=== PATIENT | female | born 1995 | race Hispanic/Latino ===

== ENCOUNTER 2016-12-08 21:36 | Emergency (ER) | payer SELFPAY ==
[2016-12-08 22:13] LABS: Basophils % (Auto) 0.3 % (0.0-1.8); Hematocrit 35.8 % (30.3-42.9); Hemoglobin 11.7 gm/dl (10.1-14.3); Mean Corpuscular HGB Conc 33 % (30-34); Mean Corpuscular Volume 80 fl (79-97); Platelet Count 371 K/mm3 (140-440); White Blood Count 9.5 K/mm3 (4.5-11.0)
[2016-12-08 22:14] LABS: Mean Corpuscular Hemoglobin 26 pg (28-32)
[2016-12-08 22:27] LABS: Alanine Aminotransferase 43 units/L (7-56); Albumin 4.9 g/dL (3.9-5); Albumin/Globulin Ratio 1.6 %; Alkaline Phosphatase 55 units/L (35-129); Anion Gap 22 mmol/L; Blood Urea Nitrogen 4 mg/dL (7-17); Calcium 9.3 mg/dL (8.4-10.2); Carbon Dioxide 21 mmol/L (22-30); Chloride 95.7 mmol/L (98-107); Glucose 117 mg/dL (65-100); Lipase 26 units/L (13-60); Potassium 3.9 mmol/L (3.6-5.0); Sodium 135 mmol/L (137-145)
[2016-12-08 23:05] LABS: Bilirubin,Urine NEG (Negative); Blood,Urine NEG (Negative); Ketones,Urine NEG (Negative); Leukocyte Esterase,Urine NEG (Negative); Mucus,Urine FEW /HPF; Nitrite,Urine NEG (Negative); Protein,Urine <15 mg/dL mg/dL (Negative); RBC,Urine < 1.0 /HPF (0.0-6.0); Urobilinogen,Urine < 2.0 mg/dL (<2.0)
[2016-12-09 02:04] VITALS: BP 144/102
--- NOTE | 2016-12-09 02:36 | ED Elopement Review ---
ED Pt Elopement review - Results review Lab results: Laboratory Tests 12/08/16 12/08/16 12/08/16 21:56 21:56 21:56 WBC 9.5 RBC 4.50 Hgb 11.7 Hct 35.8 MCV 80 MCH 26 L MCHC 33 RDW 15.0 Plt Count 371 Lymph % (Auto) 17.8 [place] % (Auto) 3.6 Eos % (Auto) 0.0 Baso % (Auto) 0.3 Lymph # 1.7 [place] # 0.3 Eos # 0.0 Baso # 0.0 Seg Neutrophils % 78.3 H Seg Neutrophils # 7.5 Sodium 135 L Potassium 3.9 Chloride 95.7 L Carbon Dioxide 21 L Anion Gap 22 BUN 4 L Creatinine 0.5 L Estimated GFR > 60 BUN/Creatinine Ratio 8.00 Glucose 117 H Calcium 9.3 Total Bilirubin 0.30 AST 36 ALT 43 Alkaline Phosphatase 55 Total Protein 8.0 Albumin 4.9 Albumin/Globulin Ratio 1.6 Lipase 26 HCG, Qual Negative Urine Color Urine Turbidity Urine pH Ur Specific [place] Urine Protein Urine Glucose (UA) Urine Ketones Urine Blood Urine Nitrite Urine Bilirubin Urine Urobilinogen Ur Leukocyte Esterase Urine WBC (Auto) Urine RBC (Auto) U Epithel Cells (Auto) Urine Mucus 12/08/16 22:22 WBC RBC Hgb Hct MCV MCH MCHC RDW Plt Count Lymph % (Auto) [place] % (Auto) Eos % (Auto) Baso % (Auto) Lymph # [place] # Eos # Baso # Seg Neutrophils % Seg Neutrophils # Sodium Potassium Chloride Carbon Dioxide Anion Gap BUN Creatinine Estimated GFR BUN/Creatinine Ratio Glucose Calcium Total Bilirubin AST ALT Alkaline Phosphatase Total Protein Albumin Albumin/Globulin Ratio Lipase HCG, Qual Urine Color Yellow Urine Turbidity Clear Urine pH 5.0 Ur Specific [place] 1.033 H Urine Protein <15 mg/dl Urine Glucose (UA) Neg Urine Ketones Neg Urine Blood Neg Urine Nitrite Neg Urine Bilirubin Neg Urine Urobilinogen < 2.0 Ur Leukocyte Esterase Neg Urine WBC (Auto) 1.0 Urine RBC (Auto) < 1.0 U Epithel Cells (Auto) 2.0 Urine Mucus Few - Call Back decision Pt Call Back Decision: No action required
== END 2016-12-09 03:14 | disposition left against medical advice (07) ==
LOC: ED 21:36
DX: R10.9 Unspecified abdominal pain (principal); R11.10 Vomiting, unspecified; Z53.21 Procedure and treatment not carried out due to patient leaving prior to being seen by health care provider
CPT/HCPCS: 36415; 80053; 81001; 83690; 84703; 85025

== ENCOUNTER 2017-08-29 19:29 | Emergency (ER) | payer SELFPAY ==
[2017-08-29 20:02] VITALS: BP 115/92
[2017-08-29] MEDS ORDERED: BOOSTRIX IM ONE (23:45)
[2017-08-29] MEDS ORDERED: MOTRIN PO ONE (23:45)
--- NOTE | 2017-08-29 23:53 | Emergency Department Report ---
ED Animal Bite HPI - General Chief Complaint: Animal Bite Stated Complaint: DOG BITE Time Seen by Provider: 08/29/17 22:20 Source: patient Mode of arrival: Ambulatory Limitations: No Limitations - History of Present Illness Initial Comments: This is a 22-year-old female nontoxic, well nourished in appearance, no acute signs of distress presents to the ED with c/o of dog bite this evening. Patient stated she was in a neighbors house and a dog bite her right hand. Patient stated that the dog is up to date with all vaccines. Patient stated [employer] and animal control notified. Patient denies decreased ROM, pus, drainage, fever, chills, headache, nausea, vomiting, chest pain or shortness of breathe. Patient denies any allergies or PMH. MD Complaint: animal bite -: This evening Right: Hand Animal: dog Animal Control Notified: Yes Description: household pet Mechanism: bite Severity scale (0 -10): 8 Context: playing with animal Associated Symptoms: other (4 cm lacertation of the palm of right hand) Treatments Prior to Arrival: irrigation - Related Data Patient Tetanus UTD: No Previous Rx's Medication Instructions Recorded Last Taken Type Amoxicillin/K Clav Tab [Augmentin 1 tab PO Q12HR #20 tab 08/30/17 Unknown Rx 875 mg] traMADol [Ultram] 50 mg PO Q6HR PRN #12 tablet 08/30/17 Unknown Rx Allergies Allergy/AdvReac Type Severity Reaction Status Date / Time No Known Allergies Allergy Verified 12/08/16 21:52 ED Review of Systems ROS: Stated complaint: DOG BITE Other details as noted in HPI Constitutional: denies: chills, fever Eyes: denies: eye pain, eye discharge, vision change ENT: denies: ear pain, throat pain Respiratory: denies: cough, shortness of breath, wheezing Cardiovascular: denies: chest pain, palpitations Endocrine: no symptoms reported Gastrointestinal: denies: abdominal pain, nausea, diarrhea Genitourinary: denies: urgency, dysuria, discharge Musculoskeletal: denies: back pain, joint swelling, arthralgia Skin: denies: rash, lesions Neurological: denies: headache, weakness, paresthesias Psychiatric: denies: anxiety, depression Hematological/Lymphatic: denies: easy bleeding, easy bruising ED Past Medical Hx - Past Medical History Additional medical history: over weight - Surgical History Past Surgical History?: No - Social History Smoking Status: Current Every Day Smoker Substance Use Type: Alcohol, Marijuana - Medications Home Medications: Home Medications Medication Instructions Recorded Confirmed Last Taken Type Amoxicillin/K Clav Tab [Augmentin 1 tab PO Q12HR #20 tab 08/30/17 Unknown Rx 875 mg] traMADol [Ultram] 50 mg PO Q6HR PRN #12 tablet 08/30/17 Unknown Rx ED Physical Exam - General Limitations: No Limitations General appearance: alert, in no apparent distress - Head Head exam: Present: atraumatic, normocephalic - Eye Eye exam: Present: normal appearance - ENT ENT exam: Present: mucous membranes moist - Neck Neck exam: Present: normal inspection - Respiratory Respiratory exam: Present: normal lung sounds bilaterally. Absent: respiratory distress - Cardiovascular Cardiovascular Exam: Present: regular rate, normal rhythm. Absent: systolic murmur, diastolic murmur, rubs, gallop - GI/Abdominal GI/Abdominal exam: Present: soft, normal bowel sounds - Extremities Exam Extremities exam: Present: normal inspection, full ROM, tenderness, normal capillary refill. Absent: pedal edema, joint swelling, calf tenderness - Expanded Upper Extremity Exam Right General: Present: normal inspection Shoulder Exam: Present: normal inspection, full ROM Upper Arm exam: Present: normal inspection, full ROM Elbow exam: Present: normal inspection, full ROM Forearm Wrist exam: Present: normal inspection, full ROM Hand Wrist exam: Present: normal inspection, full ROM, tenderness, abrasion, laceration (4 cm superfical to palm of hand). Absent: swelling, ecchymosis, deformity, crepidus, dislocation, erythema, amputation, nail avulsion, subungual hematoma Hand L/R Front: 1 - Positive: laceration Hand L/R Back: 1 - abrasion Neuro motor exam: Present: wrist extension intact, thumb opposition intact, thumb IP flexion intact, thumb adduction intact, fingers 2-5 abduction intact Neurosensory exam: Present: 2-point discrimination, radial nerve intact, ulnar nerve intact, median nerve intact Vascular: Present: vascular compromise, normal capillary refill, radial pulse, brachial pulse, ulnar pulse - Back Exam Back exam: Present: normal inspection, full ROM. Absent: tenderness, CVA tenderness (R), CVA tenderness (L), muscle spasm, paraspinal tenderness, vertebral tenderness, rash noted - Neurological Exam Neurological exam: Present: alert, oriented X3, CN II-XII intact, normal gait, reflexes normal - Psychiatric Psychiatric exam: Present: normal affect, normal mood - Skin Skin exam: Present: warm, dry, intact, normal color. Absent: rash ED Course Vital Signs 08/29/17 19:57 Temperature 98.1 F Pulse Rate 98 H Respiratory 18 Rate Blood Pressure 115/92 O2 Sat by Pulse 98 Oximetry - Reevaluation(s) Reevaluation #1: 08/29/17 23:54 Patient is speaking in full sentences with no signs of distress noted. - Laceration /Wound Repair Right Hand Wound Location: upper extremity (right hand) Wound Length (cm): 4 Wound's Depth, Shape: superficial Wound Explored: clean Irrigated w/ Saline (ccs): 40 Betadine Prep?: Yes Anesthesia: 1% Lidocaine Volume Anesthetic (ccs): 2 Wound Debrided: minimal Wound Repaired With: sutures Suture Size/Type: 4:0, proline Number of Sutures: 1 Layer Closure?: No Sterile Dressing Applied?: Yes Progress: Under sterile field, I used Betadine to clean the area. I washed patients hand with soap and water. I then used 40 mL of normal saline to flush the area. I then used 1% lidocaine plain and injected 2 mL to the wound. I then used a 4-0 Prolene to suture the laceration. Number of stitches 1 in the middle just to proximate the lac. I then applied a sterile 4 x 4 with tape. Minimal bleeding noted but is under control. Patient tolerated procedure well with no signs of distress. Critical care attestation.: If time is entered above; I have spent that time in minutes in the direct care of this critically ill patient, excluding procedure time. ED Disposition Clinical Impression: Laceration Dog bite Qualifiers: Encounter type: initial encounter Qualified Code(s): W54.0XXA - Bitten by dog, initial encounter Disposition: DC-01 TO HOME OR SELFCARE Is pt being admited?: No Does the pt Need Aspirin: No Condition: Stable Instructions: Animal Bite (ED), Amoxicillin/Clavulanate Potassium (By mouth) Additional Instructions: Follow-up with a primary care doctor in 3-5 days or if symptoms worsen and continue return to emergency room as soon as possible. Return in 10 days for suture removal. Do not operate any machinery while taking Ultram due to drowsiness. Prescriptions: Amoxicillin/K Clav Tab [Augmentin 875 mg] 1 tab PO Q12HR #20 tab traMADol [Ultram] 50 mg PO Q6HR PRN #12 tablet PRN Reason: Pain Referrals: PRIMARY CAREMD [Primary Care Provider] - 3-5 Days ANNIE FARRIS MD [Staff Physician] - 3-5 Days [facility] [Outside] - 3-5 Days [facility] [Outside] - 3-5 Days Forms: Work/School Release Form(ED) ED Medical Decision Making - Medical Decision Making This is a 21-year-old female that presents with laceration status post dog bite. Patient is stable and was examined by me. The area was cleaned with soap and water. I sutured the lac with 1 stitch just to proximate the lac. Patient received tetanus booster in the ED. Patient stated the dog is UTD with all vaccines. Sterile dressing applied. Patient discharged with Augmentin and Ultram for pain. Patient was instructed to not operate any machinery while taking Ultram due to drowsiness. Patient was instructed to return in 10 days for suture removal. Patient was instructed for proper wound care and to Follow- up with a primary care doctor in 3-5 days or if symptoms worsen and continue return to emergency room as soon as possible. At time of discharge, the patient does not seem toxic or ill in appearance. No acute signs of distress noted. Patient agrees to discharge treatment plan of care. No further questions noted by the patient.
[2017-08-30] MEDS ORDERED: TYLENOL PO ONE (00:06)
[2017-08-30] MEDS ORDERED: TYLENOL ONE (00:08)
[2017-08-30] MEDS ORDERED: XYLOCAINE 1% 20 mL INFILTRATI ONE (00:31)
== END 2017-08-30 01:00 | disposition home or self-care (01) ==
LOC: ED 19:29
DX: S61.411A Laceration without foreign body of right hand, initial encounter (principal); F12.10 Cannabis abuse, uncomplicated; F17.200 Nicotine dependence, unspecified, uncomplicated; W54.0XXA Bitten by dog, initial encounter; Y93.89 Activity, other specified; Y99.8 Other external cause status; Y92.89 Other specified places as the place of occurrence of the external cause
CPT/HCPCS: 90471; 90715; 99282